=== PATIENT | male | born 1960 | race Caucasian/White ===

== ENCOUNTER 2018-07-23 22:34 | Inpatient (IN) | payer OTHER ==
[2018-07-23 23:10] LABS: ADD MAN DIFF? NO
[2018-07-23 23:11] LABS: WHITE BLOOD COUNT 11.1 10^3/ul (4.8-10.8)
[2018-07-23 23:11] LABS: BASOPHILS % 0.4 % (0.0-2.0); EOSINOPHILS # 0.1 10^3/ul (0.0-0.5); EOSINOPHILS % 0.9 % (0.0-7.0); HEMATOCRIT 50.6 % (42.0-52.0); HEMOGLOBIN 17.5 g/dl (14.0-18.0); LYMPHOCYTES # 3.5 10^3/ul (0.8-2.9); LYMPHOCYTES % 31.1 % (15.0-51.0); MEAN CORPUSCULAR HGB CONC 34.6 g/dl (32.0-37.0); MEAN CORPUSCULAR VOLUME 86.8 fl (82.0-101.0); MEAN PLATELET VOLUME 11.1 fl (7.4-10.4); MONOCYTE # 0.7 10^3/ul (0.3-0.9); NEUTROPHIL # 6.8 10^3/ul (1.6-7.5); NEUTROPHILS % 61.1 % (39.0-77.0); PLATELET COUNT 201 10^3/UL (140-415); RED BLOOD COUNT 5.83 10^6/ul (4.70-6.10); RED CELL DISTRIBUTION WIDTH 12.7 % (11.5-14.5)
[2018-07-23 23:17] LABS: ALANINE AMINOTRANSFERASE 42 IU/L (13-69); ALBUMIN 4.1 g/dl (3.3-4.9); ALKALINE PHOSPHATASE 56 IU/L (42-121); ANION GAP 10 (5-13); ASPARTATE AMINO TRANSFERASE 21 IU/L (15-46); BILIRUBIN,INDIRECT 0.6 mg/dl (0-1.1); BILIRUBIN,TOTAL 0.6 mg/dl (0.2-1.3); BLOOD UREA NITROGEN 15 mg/dl (7-20); CALCIUM 9.9 mg/dl (8.4-10.2); CARBON DIOXIDE 27 mmol/L (21-31); CHLORIDE 103 mmol/L (97-110); CREATININE 1.04 mg/dl (0.61-1.24); GLUCOSE 105 mg/dl (70-220); LIPASE 99 U/L (23-300); POTASSIUM 3.7 mmol/L (3.5-5.1); SODIUM 140 mmol/L (135-144); TOTAL PROTEIN 7.5 g/dl (6.1-8.1)
[2018-07-23] MEDS: LIDOCAINE/MYLANTA 40 ML BTL PO (23:17)
[2018-07-23] MEDS: KETOROLAC 15 MG INJ IV (23:17)
[2018-07-23] MEDS: BELLADONNA/PHENOBARBITAL TAB PO (23:17)
[2018-07-23] MEDS: SOD CHLORIDE 0.9% 1,000 ML IV (23:19)
[2018-07-23 23:28] LABS: TROPONIN-I 0.025 ng/ml (0.000-0.120)
[2018-07-23] MEDS: ASPIRIN 81 MG TAB PO (23:50)
[2018-07-24] MEDS ORDERED: ACETAMINOPHEN 325 MG TAB PO (00:30)
[2018-07-24] MEDS ORDERED: NACL 0.9% 3 ML SYG IV (00:30)
[2018-07-24] MEDS ORDERED: ONDANSETRON 4 MG INJ IV (00:30)
[2018-07-24] MEDS ORDERED: NITROGLYCERIN (SL) 0.4 MG TAB SL (00:30)
[2018-07-24] MEDS ORDERED: morphine 2 MG INJ IV (00:30)
[2018-07-24] MEDS: SOD CHLORIDE 0.9% 1,000 ML IV ×2 (02:53→13:43)
[2018-07-24 08:40] LABS: CREATINE KINASE 41 IU/L (23-200)
[2018-07-24 08:45] LABS: CHOL/HDL RATIO 4.5 RATIO; HDL CHOLESTEROL 36 mg/dl (28-71); LDL CHOLESTEROL,CALCULATED 106 mg/dl; TRIGLYCERIDES 108 mg/dl (0-149)
[2018-07-24 08:45] LABS: CHOLESTEROL 164 mg/dl (100-200)
[2018-07-24 08:50] LABS: CK INDEX 1.2; CK-MB 0.51 ng/ml (0.0-2.4)
[2018-07-24 08:54] LABS: TROPONIN-I 0.058 ng/ml (0.000-0.120)
[2018-07-24] MEDS: ASPIRIN 81 MG TAB PO (08:58)
[2018-07-24] MEDS: ENOXAPARIN 40 MG/0.4 ML SYG SC (09:00)
[2018-07-24 10:22] LABS: HEMOGLOBIN A1C 5.6 % (0-5.9)
== END 2018-07-24 18:00 | disposition home or self-care (01) | DRG 313 ==
LOC: E/R 22:34 → TEL 07-24 00:26
DX: R07.9 Chest pain, unspecified (principal); Z87.891 Personal history of nicotine dependence
CPT/HCPCS: 36415; 71045; 78452; 80053; 80061; 82550; 82553; 83036; 83690; 84484; 85025; 93005; 93017; 93306; 96374; 99285-25